=== PATIENT | female | born 2000 | race Two or more races ===

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

== ENCOUNTER → 2020-02-13 | Outpatient (REF) | payer OTHER, SELFPAY ==
[2020-02-14 15:41] LABS: CHLAMYDIA DNA AMPLIFICATION POSITIVE (NEGATIVE); GC DNA AMPLIFICATION NEGATIVE (NEGATIVE)
== END ==
LOC: M LAB REF 16:00
PROVIDERS: ATTEND Physician Assistant Medical
DX: Z11.3 Encounter for screening for infections with a predominantly sexual mode of transmission (principal)

== ENCOUNTER → 2021-02-06 | Outpatient (CLI) | payer OTHER ==
[2021-02-06 17:46] LABS: HEMATOCRIT 39.7 % (36.0-47.0); HEMOGLOBIN 13.7 g/dl (12.0-15.5); MEAN CORPUSCULAR HEMOGLOBIN 31.9 pg (27.0-33.0); MEAN CORPUSCULAR HGB CONC 34.5 g/dl (32.0-36.5); MEAN CORPUSCULAR VOLUME 92.3 fl (80.0-96.0); PLATELET COUNT, AUTOMATED 255 10^3/uL (150-450); WHITE BLOOD COUNT 7.1 10^3/uL (4.0-10.0)
[2021-02-06 18:13] LABS: FREE T4 0.57 NG/DL (0.78-1.33); THYROID STIMULATING HORMONE 40.1 uIU/ML (0.463-3.98)
[2021-02-06 18:40] LABS: HEMOGLOBIN A1c 5.1 %
[2021-02-10 17:07] LABS: TESTOSTERONE FREE (DIRECT) 1.2 pg/mL (0.0-4.2)
== END ==
LOC: M PLALAB 14:36
PROVIDERS: ATTEND Advanced Practice Midwife
DX: N92.6 Irregular menstruation, unspecified (principal); L70.0 Acne vulgaris; R63.5 Abnormal weight gain

== ENCOUNTER → 2021-02-10 | Outpatient (CLI) | payer OTHER ==
[2021-02-10 18:59] LABS: FREE T3 2.7 PG/ML (2.9-4.5); FREE THYROXINE INDEX 1.3 % (1.3-4.8); T UPTAKE 28 % (30-39); THYROID PEROXIDASE ANTIBODY > 1300.0 U/ML (<60.0); THYROXINE (T4) 4.8 UG/DL (6.0-11.6); TOTAL T3 106.6 NG/DL (86.0-192.0)
== END ==
LOC: M LAB 16:52
PROVIDERS: ATTEND Advanced Practice Midwife
DX: E03.9 Hypothyroidism, unspecified (principal)

== ENCOUNTER → 2021-03-06 | Outpatient (CLI) | payer OTHER ==
[2021-03-06 18:09] LABS: FREE T4 1.3 NG/DL (0.78-1.33); THYROID STIMULATING HORMONE 3.2 uIU/ML (0.463-3.98)
== END ==
LOC: M LAB 16:43
PROVIDERS: ATTEND Advanced Practice Midwife
DX: E03.9 Hypothyroidism, unspecified (principal)

== ENCOUNTER → 2021-05-13 | Outpatient (REF) | payer BC ==
[2021-05-14 13:05] LABS: FREE T4 1.2 NG/DL (0.78-1.33); THYROGLOBULIN ANTIBODY 357.1 U/ML (<60.0); THYROID STIMULATING HORMONE 1.17 uIU/ML (0.463-3.98)
== END ==
LOC: M SFHCCLAY 14:25
PROVIDERS: ATTEND Nurse Practitioner Family
DX: R79.89 Other specified abnormal findings of blood chemistry (principal)

== ENCOUNTER → 2021-05-27 | Outpatient (CLI) | payer BC ==
--- NOTE | 2021-05-27 15:54 | REP ---
INDICATION: ABNORMAL TSH COMPARISON: None. TECHNIQUE: Cross scale and color evaluation of the thyroid gland using the linear high frequency transducer. FINDINGS: The thyroid gland is diffusely heterogeneous without discrete significant mass, nodule or cystic lesion. Right thyroid lobe measures 4.9 x 1.7 x 1.5 cm. Isthmus measures 4.4 mm in width. Left thyroid lobe measures 4.2 x 1.5 x 1.2 cm. IMPRESSION: Diffusely heterogeneous gland without discrete focal abnormality. <Electronically signed by Ramirez Tidwell > 05/27/21 [id number]
== END ==
LOC: M RAD 15:16
PROVIDERS: ATTEND Nurse Practitioner Family
DX: R79.89 Other specified abnormal findings of blood chemistry (principal)

== ENCOUNTER → 2021-07-01 | Outpatient (CLI) | payer BC ==
[2021-07-01 15:33] LABS: FREE T4 1.24 NG/DL (0.78-1.33); THYROID STIMULATING HORMONE 1.62 uIU/ML (0.463-3.98)
== END ==
LOC: M LAB 14:30
PROVIDERS: ATTEND Nurse Practitioner Family
DX: E03.9 Hypothyroidism, unspecified (principal)

== ENCOUNTER → 2021-09-30 | Outpatient (CLI) | payer BC ==
[2021-09-30 17:36] LABS: FREE T4 1.1 NG/DL (0.78-1.33); THYROID STIMULATING HORMONE 2.32 uIU/ML (0.463-3.98)
== END ==
LOC: M LAB 16:15
PROVIDERS: ATTEND Nurse Practitioner Family
DX: E03.9 Hypothyroidism, unspecified (principal)

== ENCOUNTER → 2023-02-03 | Outpatient (REF) | payer BC ==
[2023-02-03 17:12] LABS: FREE T4 1.35 NG/DL (0.89-1.76); THYROID STIMULATING HORMONE 2.327 uIU/ML (0.55-4.78)
== END ==
LOC: M SFHCCLAY 11:38
PROVIDERS: ATTEND Nurse Practitioner Family
DX: E03.9 Hypothyroidism, unspecified (principal)

== ENCOUNTER → 2023-03-21 | Outpatient (REF) | payer BC ==
[2023-03-21 21:19] LABS: APPEARANCE, URINE HAZY (CLEAR); BACTERIA, URINE AUTO NEGATIVE (NEGATIVE); BILIRUBIN, URINE AUTO NEGATIVE (NEGATIVE); BLOOD, URINE BLOOD NEGATIVE (NEGATIVE); COLOR, URINE STRAW (YELLOW); GLUCOSE, URINE (UA) AUTO NEGATIVE (NEGATIVE); KETONE, URINE AUTO NEGATIVE (NEGATIVE); LEUKOCYTE ESTERASE, URINE AUTO NEGATIVE (NEGATIVE); NITRITE, URINE AUTO NEGATIVE (NEGATIVE); PROTEIN, URINE AUTO NEGATIVE (NEGATIVE); RBC, URINE AUTO 0 /HPF (0-3); SPECIFIC GRAVITY URINE AUTO 1.006 (1.002-1.035); SQUAMOUS EPITHELIAL CELL UR AU 7 /HPF (0-6); UROBILINOGEN, URINE AUTO 0.2 mg/dL (0.0-2.0); WBC, URINE AUTO 1 /HPF (0-3)
[2023-03-21 23:12] LABS: GC DNA AMPLIFICATION NEGATIVE (NEGATIVE)
== END ==
LOC: M LAB REF 20:43
PROVIDERS: ATTEND Physician Assistant Medical
DX: N39.0 Urinary tract infection, site not specified (principal); Z11.3 Encounter for screening for infections with a predominantly sexual mode of transmission

== ENCOUNTER → 2023-12-05 | Outpatient (REF) | payer BC ==
[2023-12-05 19:27] LABS: BASO % 0.5 % (0.0-1.0); EOS # 0.1 10^3/uL (0.0-0.5); EOS % 1.1 % (0.0-3.0); HEMATOCRIT 37.9 % (36.0-47.0); HEMOGLOBIN 12.8 g/dl (12.0-15.5); LYMPH # 2.4 10^3/uL (1.5-5.0); LYMPH % 36.8 % (24.0-44.0); MEAN CORPUSCULAR HEMOGLOBIN 31.1 pg (27.0-33.0); MEAN CORPUSCULAR HGB CONC 33.8 g/dl (32.0-36.5); MEAN CORPUSCULAR VOLUME 92.2 fl (80.0-96.0); MONO # 0.5 10^3/uL (0.0-0.8); MONO % 7.5 % (2.0-8.0); NEUTROPHILS # 3.5 10^3/uL (1.5-8.5); NEUTROPHILS % 53.8 % (36.0-66.0); PLATELET COUNT, AUTOMATED 253 10^3/uL (150-450); RED BLOOD COUNT 4.11 10^6/uL (4.00-5.40); WHITE BLOOD COUNT 6.6 10^3/uL (4.0-10.0)
[2023-12-05 20:07] LABS: THYROID STIMULATING HORMONE 0.637 uIU/ML (0.55-4.78)
[2023-12-05 20:10] LABS: ALBUMIN 4.4 G/DL (3.2-5.2); ALKALINE PHOSPHATASE 48 U/L (46-116); ALT/SGPT 17 U/L (7.0-40); AST/SGOT < 8 U/L (<34); BILIRUBIN,TOTAL 1.1 MG/DL (0.3-1.2); BLOOD UREA NITROGEN 13 MG/DL (9-23); CALCIUM LEVEL 9.5 MG/DL (8.5-10.1); CARBON DIOXIDE LEVEL 28 MMOL/L (20-31); CHLORIDE LEVEL 105 MMOL/L (98-107); CREATININE FOR GFR 0.72 MG/DL (0.55-1.30); GLOMERULAR FILTRATION RATE > 60.0 (>60); GLUCOSE, FASTING 105 MG/DL (60-100); POTASSIUM SERUM 3.7 MMOL/L (3.5-5.1); SODIUM LEVEL 139 MMOL/L (136-145); TOTAL PROTEIN 6.8 G/DL (5.7-8.2)
== END ==
LOC: M SFHCCLAY 13:20
PROVIDERS: ATTEND Nurse Practitioner Family
DX: E03.9 Hypothyroidism, unspecified (principal); F90.9 Attention-deficit hyperactivity disorder, unspecified type; L40.9 Psoriasis, unspecified